=== PATIENT | male | born 1985 | race Hispanic/Latino ===

== ENCOUNTER 2017-10-11 04:51 | Emergency (ER) | payer SELFPAY ==
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
[2017-10-11] MEDS ORDERED: TETANUS & DIPHTHERIA TOX,ADULT 0.5 ML VIAL ONE (05:35)
[2017-10-11 06:07] VITALS: BP 149/93; TEMP 97.8; O2SAT 99
--- NOTE | 2017-10-11 11:29 | RAD REPORT ---
EXAM DESCRIPTION: CT - Head Brain Wo Cont - 10/11/2017 7:18 am CLINICAL HISTORY: Trauma, head injury. COMPARISON: 11/01/2014 TECHNIQUE: All CT scans are performed using dose optimization technique as appropriate and may inclu de automated exposure control or mA/KV adjustment according to patient size. FINDINGS: No intracranial hemorrhage, hydrocephalus or extra-axial fluid collection.No areas of brai n edema or evidence of midline shift. The paranasal sinuses and mastoids are clear. The calvarium is intact. Several scalp hematomas are no maicol. IMPRESSION: No acute intracranial abnormality.
== END 2017-10-11 06:04 | disposition home or self-care (01) ==
LOC: ER 04:51
DX: S00.81XA Abrasion of other part of head, initial encounter (principal); W22.8XXA Striking against or struck by other objects, initial encounter; Y93.9 Activity, unspecified; Y92.149 Unspecified place in prison as the place of occurrence of the external cause; Z23 Encounter for immunization
CPT/HCPCS: 70450; 90714; 99284

== ENCOUNTER 2019-01-30 07:58 | Emergency (ER) | payer SELFPAY ==
[2019-01-30 08:25] LABS: Urine Blood NEGATIVE (NEG); Urine Glucose NEGATIVE (NEG); Urine Protein NEGATIVE (NEG); Urine Specific Gravity <1.005 (1.005-1.030)
[2019-01-30] MEDS ORDERED: ONDANSETRON 4 MG/2 ML VIAL ONE (08:33)
[2019-01-30] MEDS ORDERED: NA CHLORIDE 0.9% 1,000 ML ONE ×3 (08:43→11:33)
[2019-01-30 08:47] LABS: Protime INR 1.04
[2019-01-30 08:56] LABS: Absolute Lymphocytes (CBC) 4.8 K/uL (0.7-4.9); Basophils % 0.7 % (0-1.3); Eosinophils % 0.7 % (0-4.4); Hematocrit 41.5 % (39.6-49.0); MPV 11.9 fL (7.6-11.3); Monocytes % 4.8 % (3.3-12.3); RBC Red Blood Cell Count 6.53 M/uL (4.33-5.43)
[2019-01-30 09:04] LABS: Barbiturates NEGATIVE (NEGATIVE); Benzodiazepines NEGATIVE (NEGATIVE); Cocaine NEGATIVE (NEGATIVE); METHAMPHETAM NEGATIVE (NEGATIVE); Methadone NEGATIVE (NEGATIVE); Opiates NEGATIVE (NEGATIVE); Phencyclidine NEGATIVE (NEGATIVE); THC Cannibis NEGATIVE (NEGATIVE)
[2019-01-30 09:07] LABS: ALT/SGPT 83 U/L (12-78); AST/SGOT 55 U/L (15-37); Albumin 4.1 g/dL (3.4-5.0); Alkaline Phosphatase 65 U/L (45-117); BUN Blood Urea Nitrogen 12 mg/dL (7-18); Bicarbonate 24 mmol/L (21-32); Bilirubin Direct 0.2 mg/dL (0-0.2); Bilirubin Total 0.4 mg/dL (0.2-1.0); Glucose Level 122 mg/dL (74-106); Potassium 3.3 mmol/L (3.5-5.1); Sodium Level 140 mmol/L (136-145)
[2019-01-30 09:16] LABS: Arterial Blood Carboxyhemoglob 0.5 % (0-1.5); Blood Gas Oxyhemoglobin 96.2 % (94-97); Blood O2 Saturation 97.6 % (92-98.5)
[2019-01-30 09:24] LABS: Anisocytosis 1+; Blood Morphology Comment NOTED (NOT SEEN); Hypochromasia 1+; Platelet Estimate ADEQ; Platelets, Giant F
--- NOTE | 2019-01-30 10:15 | RAD REPORT ---
EXAM DESCRIPTION: CT - Head Brain Wo Cont - 01/30/2019 9:49 am CLINICAL HISTORY: Alteration of awareness/confusion COMPARISON: None TECHNIQUE: Computed axial tomography of the head was obtained. IV contrast was not requested. All CT scans are performed using dose optimization technique as appropriate and may include automated exposure control or mA/KV adjustment according to patient size. FINDINGS: An intracranial bleed is not seen . The ventricles are normal in caliber. No extra-axial fluid collection is noted. Joey cisterna magna. Fluid within the sinuses/ mastoids is not seen. IMPRESSION: No acute intracranial abnormality is seen. If patient's symptoms persist MRI of the bra in would be recommended.
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
--- NOTE | 2019-01-30 13:06 | EDPHYS ---
Physician Documentation [facility] Name: Tyler Silverio Jr Age: 33 yrs Sex: Male : 1985 Arrival Date: 01/30/2019 Time: 07:59 Bed 3 Private MD: ED Physician Hudson Franz HPI: 01/30 14:29 This 33 yrs old Male presents to ER via EMS with complaints of Unresponsive. gs 14:29 The patient presents with decreased mental status. Onset: The symptoms/episode gs began/occurred acutely, just prior to arrival. Possible causes: alcohol, has had a recent alcohol binge. Associated signs and symptoms: Pertinent positives: confusion, Pertinent negatives: combativeness. Current symptoms: In the emergency department the patient's symptoms are unchanged from the initial presentation. 15:08 The patient has experienced a previous episode. The patient has not recently seen a gs physician. Historical: - Allergies: 08:02 No Known Drug Allergies; hj - Home Meds: 08:02 None [Active]; hj - PMHx: 08:02 None; hj - PSHx: 08:02 None; hj - Immunization history:: Adult Immunizations unknown. - Social history:: Smoking status: Patient uses tobacco products, Patient uses alcohol. - Ebola Screening: : Patient negative for fever greater than or equal to 101.5 degrees Fahrenheit, and additional compatible Ebola Virus Disease symptoms Patient denies exposure to infectious person Patient denies travel to an Ebola-affected area in the 21 days before illness onset. ROS: 15:08 All other systems are negative. gs Exam: 15:08 Head/Face: Normocephalic, atraumatic. Eyes: Pupils equal round and reactive to light, gs extra-ocular motions intact. Lids and lashes normal. Conjunctiva and sclera are non-icteric and not injected. Cornea within normal limits. Periorbital areas with no swelling, redness, or edema. ENT: Nares patent. No nasal discharge, no septal abnormalities noted. Tympanic membranes are normal and external auditory canals are clear. Oropharynx with no redness, swelling, or masses, exudates, or evidence of obstruction, uvula midline. Mucous membranes moist. Neck: Trachea midline, no thyromegaly or masses palpated, and no cervical lymphadenopathy. Supple, full range of motion without nuchal rigidity, or vertebral point tenderness. No Meningismus. Chest/axilla: Normal chest wall appearance and motion. Nontender with no deformity. No lesions are appreciated. Cardiovascular: Regular rate and rhythm with a normal S1 and S2. No gallops, murmurs, or rubs. Normal PMI, no JVD. No pulse deficits. Respiratory: Lungs have equal breath sounds bilaterally, clear to auscultation and percussion. No rales, rhonchi or wheezes noted. No increased work of breathing, no retractions or nasal flaring. Abdomen/GI: Soft, non-tender, with normal bowel sounds. No distension or tympany. No guarding or rebound. No evidence of tenderness throughout. Back: No spinal tenderness. No costovertebral tenderness. Full range of motion. Skin: Warm, dry with normal turgor. Normal color with no rashes, no lesions, and no evidence of cellulitis. MS/ Extremity: Pulses equal, no cyanosis. Neurovascular intact. Full, normal range of motion. 15:08 Constitutional: The patient appears lethargic. 15:08 Neuro: Orientation: Not oriented to person, place, time, situation, Mentation: responsive to pain, Cranial nerves: Rotary nystagmus in . Motor: moves all fours, Sensation: Vital Signs: 08:03 BP 117 / 79; Pulse 71; Resp 18; Pulse Ox 98% on R/A; Weight 72.57 kg; Height 5 ft. 5 hj in. (165.10 cm); 08:23 BP 119 / 86; Pulse 70; Resp 16; Temp 98.4(A); Pulse Ox 99% on 2 lpm NC; 08:45 BP 108 / 68; Pulse 64; Resp 18; Pulse Ox 98% on 2 lpm NC; 10:45 BP 90 / 51; Pulse 68; Resp 14; Pulse Ox 96% on R/A; bp 12:00 BP 99 / 60; Pulse 67; Resp 18; Pulse Ox 100% on 2 lpm NC; hj 13:09 BP 100 / 62; Pulse 67; Resp 18; Pulse Ox 100% on R/A; 08:03 Body Mass Index 26.63 (72.57 kg, 165.10 cm) MDM: 08:19 Patient medically screened. 15:08 Differential Diagnosis: alcohol intoxication, intracranial bleed, overdose, seizure. Data reviewed: vital signs, nurses notes. Counseling: I had a detailed discussion with the patient and/or guardian regarding: the historical points, exam findings, and any diagnostic results supporting the discharge/admit diagnosis. Response to treatment: the patient's symptoms have markedly improved after treatment, the patient's symptoms have resolved after treatment, the patient's condition has returned to base line, normal neuro exam gcs 15 at discharge. 01/30 08:18 Order name: Urine Dipstick--Ancillary (enter results); Complete Time: 09:03 ms 01/30 08:19 Order name: ABG; Complete Time: 10:16 01/30 08:19 Order name: Acetaminophen 01/30 08:19 Order name: Basic Metabolic Panel 01/30 08:19 Order name: CBC with Diff 01/30 08:19 Order name: ETOH Level 01/30 08:19 Order name: Hepatic Function 01/30 08:19 Order name: PT-INR 01/30 08:19 Order name: Salicylate; Complete Time: 09:03 01/30 08:19 Order name: Urine Drug Screen; Complete Time: 09:18 01/30 08:20 Order name: Acetaminophen Level; Complete Time: 09:18 EDMS 01/30 08:20 Order name: Basic Metabolic Panel; Complete Time: 09:18 EDMS 01/30 08:20 Order name: CBC with Automated Diff; Complete Time: 10:16 EDMS 01/30 08:20 Order name: Alcohol Serum/Plasma; Complete Time: 09:18 EDMS 01/30 08:19 Order name: EKG; Complete Time: 08:20 01/30 08:19 Order name: EKG - Nurse/Tech; Complete Time: 08:26 01/30 08:19 Order name: IV Saline Lock; Complete Time: 08:26 01/30 08:19 Order name: Labs collected and sent; Complete Time: 08:26 01/30 08:19 Order name: Urine Dipstick-Ancillary (obtain specimen); Complete Time: 08:26 01/30 08:20 Order name: Liver (Hepatic) Function; Complete Time: 09:18 EDMS 01/30 08:20 Order name: Protime (+INR); Complete Time: 09:03 EDMS 01/30 09:22 Order name: CT Head Brain wo Cont; Complete Time: 10:16 01/30 09:24 Order name: Manual Differential; Complete Time: 10:16 EDMS Administered Medications: 08:25 Drug: NS 0.9% 1000 ml Route: IV; Rate: 1 bolus; Site: right forearm; hj 08:25 Drug: Zofran 4 mg Route: IVP; Site: right forearm; hj 08:39 Follow up: Response: Nausea is decreased bp 09:27 Drug: NS 0.9% 1000 ml Route: IV; Rate: 125 ml/hr; Site: right forearm; hj 09:45 Follow up: per provider to be ran as bolus hj 09:45 Follow up: to be ran as bolus hj 11:05 Follow up: IV Status: Completed infusion; IV Intake: 1000ml hj 11:16 Drug: NS 0.9% 1000 ml Route: IV; Rate: 1 bolus; Site: right forearm; hj 12:45 Follow up: IV Status: Completed infusion; IV Intake: 1000ml hj Disposition: 01/30/19 13:04 Discharged to Home. Impression: Toxic effect of ethanol. - Condition is Stable. - Discharge Instructions: Alcohol Intoxication. - Medication Reconciliation Form, Thank You Letter, Antibiotic Education, Prescription Opioid Use, SBAR form form. - Follow up: Private Physician; When: 1 - 2 days; Reason: Re-evaluation by your physician. Signatures: Dispatcher [employer] EDMS Herman Acevedo RN RN Hudson Franz MD MD gs Peltier, Brian RN bp Corrections: (The following items were deleted from the chart) 13:10 13:04 01/30/2019 13:04 Discharged to Home. Impression: Toxic effect of ethanol. hj Condition is Stable. Forms are SBAR form, Medication Reconciliation Form, Thank You Letter, Antibiotic Education, Prescription Opioid Use. Follow up: Private Physician; When: 1 - 2 days; Reason: Re-evaluation by your physician.
[2019-01-30 13:21] VITALS: TEMP 98.4
[2019-01-30 13:25] VITALS: O2SAT 100
[2019-01-30 13:26] VITALS: BP 100/62
--- NOTE | 2019-01-31 09:12 | EKG ---
Test Date: 2019-01-30 Test Time: 08:09:42 Hand Hide Stretcher: LORRI MEASUREMENT RESULTS: Intervals: Rate: 77 OK: 180 QRSD: 94 QT: 406 QTc: 459 [place]: P: 57 OK: 180 QRS: 8 T: 20 INTERPRETIVE STATEMENTS: Sinus rhythm with sinus arrhythmia with occasional premature ventricular complexes Otherwise normal ECG Compared to ECG 03/12/2011 09:44:03 Ventricular premature complex(es) now present Electronically Signed On 01-31-19 09:10:49 CDT by Pancho Vila
== END 2019-01-30 13:10 | disposition home or self-care (01) ==
LOC: ER 07:58
DX: T51.0X1A Toxic effect of ethanol, accidental (unintentional), initial encounter (principal); Y92.9 Unspecified place or not applicable
CPT/HCPCS: 36415; 70450; 80048; 80076; 80307; 80320; 80329; 81003; 82805; 85025; 85610; 93005; 96361; 96374; 99284; J2405; J7030

== ENCOUNTER 2020-10-24 12:05 | Emergency (ER) | payer OTHER, SELFPAY ==
--- OUTSIDE RECORDS SUMMARY | 2020-10-24 12:07 | XMS REPORT | Continuity of Care Document ---
:1985 Author Organization [facility] t Address [address] [place] [address] Care Team Providers Name Role Phone Geremias Orr APN Attending Clinician Problems This patient has no known problems. Allergies, Adverse Reactions, Alerts This patient has no known allergies or adverse reactions. Medications This patient has no known medications. Procedures This patient has no known procedures. Encounters Start End Encounter Admission Attending Care Care Encounter Source Date/Time Date/Time Type Type Clinicians Facility Department ID 2020-01-06 2020-01-06 Emergency JASS Orr [id number] 12:24:39 14:00:00 Geremias Richardson [id number] [place] [id number] [place] [id number] Results This patient has no known results.
--- NOTE | 2020-10-24 13:33 | RAD REPORT ---
EXAM DESCRIPTION: RAD - Chest Single View - 10/24/2020 1:06 pm CLINICAL HISTORY: COUGH COMPARISON: None TECHNIQUE: AP portable chest image was obtained 10/24/2020 1:06 pm . FINDINGS: Lungs are clear. Heart and vasculature are normal. No measurable pleural effusion and no p neumothorax. No acute bony abnormality seen. No acute aortic findings suspected. IMPRESSION: No acute cardiopulmonary process.
[2020-10-24 13:40] LABS: SARS-COV-2 RT PCR NEGATIVE (NEGATIVE)
--- NOTE | 2020-10-24 14:26 | ER ---
Nurse's Notes [facility] Name: Tyler Silverio Jr Age: 34 yrs Sex: Male : 1985 Arrival Date: 10/24/2020 Time: 12:06 Bed 13 Private MD: Diagnosis: Acute upper respiratory infection, unspecified Presentation: 10/24 12:11 Chief complaint: Patient states: cough with mucous and having some pain in his chest iw when he cough, no fever , had COVID last year. Coronavirus screen: Client presents with at least one sign or symptom that may indicate coronavirus-19. Standard/surgical mask placed on the client. Provider contacted for isolation considerations. Ebola Screen: Patient negative for fever greater than or equal to 101.5 degrees Fahrenheit, and additional compatible Ebola Virus Disease symptoms Patient denies exposure to infectious person. Patient denies travel to an Ebola-affected area in the 21 days before illness onset. No symptoms or risks identified at this time. Initial Sepsis Screen: Does the patient meet any 2 criteria? No. Patient's initial sepsis screen is negative. Does the patient have a suspected source of infection? No. Patient's initial sepsis screen is negative. Risk Assessment: Do you want to hurt yourself or someone else? Patient reports no desire to harm self or others. Onset of symptoms was October 21, 2020. 12:11 Method Of Arrival: Ambulatory iw 12:11 Acuity: MARTHA 3 iw Triage Assessment: 12:48 General: Appears in no apparent distress. Respiratory: Onset: The symptoms/episode zb began/occurred yesterday, the patient has mild shortness of breath. Historical: - Allergies: 12:14 No Known Allergies; iw - Home Meds: 12:14 Seroquel Oral [Active]; sertraline oral oral [Active]; iw - PMHx: 12:14 Bipolar disorder; iw - PSHx: 12:14 None; iw - Immunization history:: Adult Immunizations not up to date. - Social history:: Smoking status: Patient denies any tobacco usage or history of. Screenin:46 Abuse screen: Denies threats or abuse. Denies injuries from another. Nutritional zb screening: No deficits noted. Tuberculosis screening: No symptoms or risk factors identified. Fall Risk None identified. Assessment: 12:43 General: Appears in no apparent distress. comfortable, Behavior is calm, cooperative, zb appropriate for age, Reports feeling ill for 1-2 days. Pain: Complains of pain in left methodist and neck Pain does not radiate. Pain currently is 1 out of 10 on a pain scale. Neuro: No deficits noted. Level of Consciousness is awake, alert, obeys commands, Oriented to person, place, time, situation. Cardiovascular: Denies chest pain, diaphoresis, fatigue, lightheadedness, nausea, shortness of breath, syncope, Heart tones S1 S2 present Patient's skin is warm and dry. Rhythm is sinus tachycardia. Respiratory: Reports cough that is non-productive, hacking, persistent Airway is patent Respiratory effort is even, unlabored, Respiratory pattern is regular, Breath sounds are clear bilaterally. GI: No signs and/or symptoms were reported involving the gastrointestinal system. Derm: Skin is intact, is healthy with good turgor, Skin is normal, Skin temperature is warm. Musculoskeletal: Circulation, motion, and sensation intact. 13:40 Reassessment: Patient appears in no apparent distress at this time. Patient and/or zb family updated on plan of care and expected duration. Pain level reassessed. Patient is alert, oriented x 3, equal unlabored respirations, skin warm/dry/pink. 14:23 Reassessment: Patient appears in no apparent distress at this time. Patient and/or zb family updated on plan of care and expected duration. Pain level reassessed. Patient is alert, oriented x 3, equal unlabored respirations, skin warm/dry/pink. Vital Signs: 12:11 BP 146 / 92; Pulse 105; Resp 16; Temp 97.9; Pulse Ox 99% on R/A; Weight 97.52 kg; iw Height 5 ft. 10 in. (177.80 cm); 12:43 BP 156 / 103; Pulse 101; Resp 16; Pulse Ox 100% on R/A; zb 13:32 BP 156 / 105; Pulse 100; Resp 16; Pulse Ox 100% on R/A; zb 14:30 BP 156 / 98; Pulse 88; Resp 16; Pulse Ox 98% on R/A; zb 12:11 Body Mass Index 30.85 (97.52 kg, 177.80 cm) iw ED Course: 12:06 Patient arrived in ED. am2 12:13 Triage completed. iw 12:14 Patient placed. iw 12:15 Arm band placed on. iw 12:17 Lashae Nelson, RN is Primary Nurse. zb 12:21 Joy Harris FNP-C [facility]. kb 12:21 Messi Santiago MD is Attending Physician. kb 12:46 Patient has correct armband on for positive identification. Bed in low position. Call zb light in reach. Side rails up X 1. Pulse ox on. NIBP on. Door closed. Noise minimized. PO fluids given. 12:53 COVID swab sent to lab. Flu and/or RSV swab sent to lab. Strep swab sent to lab. zb 13:00 Verbal reassurance given. zb 13:06 Chest Single View XRAY In Process Unspecified. EDMS 14:31 No provider procedures requiring assistance completed. Patient did not have IV access zb during this emergency room visit. Administered Medications: No medications were administered Outcome: 14:25 Discharge ordered by MD. kb 14:31 Discharged to home ambulatory. zb 14:31 Condition: stable 14:31 Discharge instructions given to patient, Instructed on discharge instructions, follow up and referral plans. Demonstrated understanding of instructions, follow-up care. 14:32 Patient left the ED. zb Signatures: Dispatcher [employer] EDTX Joy Harris FNP-C BAKERY DELIVERER-Xiao Morley, RN MARCELO Adrienne Hernandez [facility] Lashae Nelson, MARCELO rojo
--- NOTE | 2020-10-24 14:26 | EDPHYS ---
Physician Documentation [facility] Name: Tyler Silverio Jr Age: 34 yrs Sex: Male : 1985 Arrival Date: 10/24/2020 Time: 12:06 Bed 13 Private MD: ED Physician Messi Santiago HPI: 10/24 13:25 This 34 yrs old Male presents to ER via Ambulatory with complaints of Cough, kb Breathing Difficulty. 13:25 The patient or guardian reports cough, difficulty breathing, sore throat. Severity of kb symptoms: At their worst the symptoms were moderate, in the emergency department the symptoms are unchanged. The patient has not experienced similar symptoms in the past. The patient has not recently seen a physician. 13:25 Onset: The symptoms/episode began/occurred 3 day(s) ago. Modifying factors: The kb symptoms are alleviated by nothing, the symptoms are aggravated by nothing. Associated signs and symptoms: Pertinent positives: sore throat, Pertinent negatives: chest pain, diarrhea, ear ache, fever, nausea, rhinorrhea, vomiting. Pt reports cough with green sputum and sore throat for 3 days. States he was recently around a family member who had bronchitis. Historical: - Allergies: 12:14 No Known Allergies; iw - Home Meds: 12:14 Seroquel Oral [Active]; sertraline oral oral [Active]; iw - PMHx: 12:14 Bipolar disorder; iw - PSHx: 12:14 None; iw - Immunization history:: Adult Immunizations not up to date. - Social history:: Smoking status: Patient denies any tobacco usage or history of. ROS: 13:25 Constitutional: Negative for fever, chills, and weight loss, Cardiovascular: Negative kb for chest pain, palpitations, and edema, Abdomen/GI: Negative for abdominal pain, nausea, vomiting, diarrhea, and constipation, MS/Extremity: Negative for injury and deformity, Skin: Negative for injury, rash, and discoloration, Neuro: Negative for headache, weakness, numbness, tingling, and seizure. 13:25 ENT: Positive for sore throat. 13:25 Respiratory: Positive for cough. Exam: 13:25 Constitutional: This is a well developed, well nourished patient who is awake, alert, kb and in no acute distress. Head/Face: Normocephalic, atraumatic. Cardiovascular: Regular rate and rhythm with a normal S1 and S2. No gallops, murmurs, or rubs. No pulse deficits. Respiratory: Respirations even and unlabored. No increased work of breathing, no retractions or nasal flaring. Abdomen/GI: Soft, non-tender. No distention Skin: Warm, dry with normal turgor. Normal color. MS/ Extremity: Pulses equal, no cyanosis. Neurovascular intact. Full, normal range of motion. Neuro: Awake and alert, GCS 15, oriented to person, place, time, and situation. Moves all extremities. Normal gait. Vital Signs: 12:11 BP 146 / 92; Pulse 105; Resp 16; Temp 97.9; Pulse Ox 99% on R/A; Weight 97.52 kg; iw Height 5 ft. 10 in. (177.80 cm); 12:43 BP 156 / 103; Pulse 101; Resp 16; Pulse Ox 100% on R/A; zb 13:32 BP 156 / 105; Pulse 100; Resp 16; Pulse Ox 100% on R/A; zb 14:30 BP 156 / 98; Pulse 88; Resp 16; Pulse Ox 98% on R/A; zb 12:11 Body Mass Index 30.85 (97.52 kg, 177.80 cm) iw MDM: 12:21 Patient medically screened. kb 13:27 Data reviewed: vital signs, nurses notes. Data interpreted: Pulse oximetry: on room air kb is 100 %. Interpretation: normal. 14:25 Counseling: I had a detailed discussion with the patient and/or guardian regarding: the kb historical points, exam findings, and any diagnostic results supporting the discharge/admit diagnosis, lab results, radiology results, the need for outpatient follow up, a family practitioner, to return to the emergency department if symptoms worsen or persist or if there are any questions or concerns that arise at home. 10/24 12:22 Order name: Chest Single View XRAY; Complete Time: 13:45 kb 10/24 12:33 Order name: Strep; Complete Time: 13:21 kb 10/24 13:23 Order name: Throat Culture EDMS 10/24 13:40 Order name: COVID-19/FLU A+B; Complete Time: 13:45 EDMS Administered Medications: No medications were administered Disposition: 16:06 Co-signature as Attending Physician, Messi Santiago MD I agree with the assessment and kdr plan of care. Disposition: 10/24/20 14:25 Discharged to Home. Impression: Acute upper respiratory infection, unspecified. - Condition is Stable. - Discharge Instructions: Upper Respiratory Infection, Adult, [id number], Viral Respiratory Infection, [id number]. - Medication Reconciliation Form, Thank You Letter, Antibiotic Education, Prescription Opioid Use form. - Follow up: Emergency Department; When: As needed; Reason: Worsening of condition. Follow up: Private Physician; When: 2 - 3 days; Reason: Recheck today's complaints, Continuance of care, Re-evaluation by your physician. Signatures: Dispatcher [employer] [facility] Joy Harris, LAWN SERVICE SUPERVISOR-C LAWN SERVICE SUPERVISOR-Ckb Messi Santiago MD MD [facility] Xiao Neves, Lashae Qiu RN, RN RN zb Corrections: (The following items were deleted from the chart) 12:56 12:23 CORONAVIRUS+MR.LAB.BRZ ordered. [facility] 14:32 14:25 10/24/2020 14:25 Discharged to Home. Impression: Acute upper respiratory zb infection, unspecified. Condition is Stable. Forms are Medication Reconciliation Form, Thank You Letter, Antibiotic Education, Prescription Opioid Use. Follow up: Emergency Department; When: As needed; Reason: Worsening of condition. Follow up: Private Physician; When: 2 - 3 days; Reason: Recheck today's complaints, Continuance of care, Re-evaluation by your physician. kb
[2020-10-24 14:40] VITALS: BP 156/98; O2SAT 98
[2020-10-24 14:49] VITALS: TEMP 98.3
== END 2020-10-24 14:32 | disposition home or self-care (01) ==
LOC: ER 12:05
DX: J06.9 Acute upper respiratory infection, unspecified (principal); Z20.822 Contact with and (suspected) exposure to COVID-19; F31.9 Bipolar disorder, unspecified
CPT/HCPCS: 0240U; 71045; 87070; 87081; 99284

== ENCOUNTER 2023-11-23 18:15 | Observation (INO) | payer OTHER ==
--- OUTSIDE RECORDS SUMMARY | 2023-11-23 18:20 | XMS REPORT | Continuity of Care Document ---
Author Name Unknown Address [address] [place] [address] [facility] thconnect Address [address] [place] [address] Care Team Providers Care Italian Lecturer Name Role Phone Geremias Orr APN Attending Clinician [phone] Problems Condition Name Condition Details Condition Category Status Onset Date Resolution Date Last Treatment Date Treating Clinician Comments Source No known active problems No known active problems Disease [facility] Allergies, Adverse Reactions, Alerts Allergy Name Allergy Type Status Severity Reaction(s) Onset Date Inactive Date Treating Clinician Comments Source NO KNOWN ALLERGIE S Drug Class Active [facility] Social History Social Habit Start Date Stop Date Quantity Comments Source Sex Assigned At [facility] Exposure to SARS-CoV-2 (event) Not sure [facility] Smoking Status Start Date Stop Date Source Unknown if ever smoked [facility] Medications Ordered Medication Name Filled Medication Name Start Date Stop Date Current Medication? Ordering Clinician Indication Dosage Frequency Signature (SIG) Comments Components Source No known medications No Un diya [facility] Vital Signs Vital Name Observation Time Observation Value Comments S ource Body temperature 2020-01-06 17:22:00 38 Elizabeth [facility] Respiratory rate 2020-01-06 17:22:00 20 /min [facility] Body height 2020-01-06 17:22:00 175.3 cm [facility] Body weight 2020-01-06 17:22:00 97.07 kg [facility] BMI 2020-01-06 17:22:00 31.60 kg/m2 [facility] Oxygen saturation in Arterial blood by Pulse oximetry 2020-01-06 17:22:00 97 /min [facility] Systolic blood pressure 2020-01-06 17:22:00 144 mm[Hg] [facility] Diastolic blood pressure 2020-01-06 17:22:00 109 mm[Hg] [facility] Heart rate 2020-01-06 17:22:00 101 /min [facility] Body temperature 2020-01-06 17:22:00 38 Elizabeth [facility] Respiratory rate 2020-01-06 17:22:00 20 /min [facility] Body height 2020-01-06 17:22:00 175.3 cm [facility] Body weight 2020-01-06 17:22:00 97.07 kg [facility] BMI 2020-01-06 17:22:00 31.60 kg/m2 [facility] Oxygen saturation in Arterial blood by Pulse oximetry 2020-01-06 17:22:00 97 /min [facility] Systolic blood pressure 2020-01-06 17:22:00 144 mm[Hg] [facility] Diastolic blood pressure 2020-01-06 17:22:00 109 mm[Hg] [facility] Heart rate 2020-01-06 17:22:00 101 /min [facility] Procedures Procedure Date / Time Performed Performing Clinicia n Source NOTICE OF PRIVACY PRACTICES 2020-01-06 17:11:57 Doctor Unassigned, [place] [facility] Encounters Start Date/Time End Date/Time Encounter Type Admission Type Attending Clinicians Care Facility Care Department Encounter ID Source 2020-02-17 00:00:00 2020-02-17 00:00:00 Outpatient [facility] [id number] [facility] 2020-01-06 12:24:39 2020-01-06 14:00:00 Emergency Dominga Geremias Laure [facility] [id number] [facility] 2020-01-06 12:24:39 2020-01-06 14:00:00 Emergency Geremias Orr [facility] [id number] 2020-01-06 12:13:00 2020-01-06 12:13:[address] [facility] ERT [id number] [facility]
[2023-11-23] MEDS ORDERED: NA CHLORIDE 0.9% 1,000 ML ONE ×3 (18:49→23:43)
[2023-11-23 19:02] LABS: PT Prothrombin Time 12.4 SECONDS (9.5-12.5); Protime INR 1.13
[2023-11-23 19:03] LABS: Absolute Basophils 0.1 K/uL (0-0.5); Absolute Lymphocytes (CBC) 1.6 K/uL (0.7-4.9); Absolute Monocytes 0.8 K/uL (0.1-1.3); Absolute Neutrophil 8.2 K/uL (1.8-8.0); Basophils % 0.6 % (0-1.3); Eosinophils % 0.2 % (0-4.4); Hematocrit 42.1 % (39.6-49.0); Hemoglobin 13.1 g/dL (13.6-17.9); MCH 19.9 pg (27.0-35.0); MCHC 31.2 g/dL (32.0-36.0); MCV 63.7 fL (80-100); MPV 9.5 fL (7.6-11.3); Monocytes % 7.2 % (3.3-12.3); Nucleated Red Blood Cells % 0.2 % (0-0); Platelets 113 thou/uL (152-406); RBC Red Blood Cell Count 6.62 M/uL (4.33-5.43); Red Cell Distribution Width 16.3 % (12.1-15.2)
[2023-11-23 19:32] LABS: Albumin 3.7 g/dL (3.4-5.0); Albumin/Globulin Ratio 0.9 (1.1-1.8); Anion Gap 9.5 mEq/L (5.0-15.0); Bilirubin Direct 0.4 mg/dL (0-0.2); Bilirubin Indirect, Calculated 0.7 mg/dL (0.2-0.8); Bilirubin Total 1.1 mg/dL (0.2-1.0); Globulin 3.9 g/dL (2.3-3.5); Magnesium 2.1 mg/dL (1.6-2.4); Potassium 3.5 mEq/L (3.5-5.1); Protein, Total 7.6 g/dL (6.4-8.2)
[2023-11-23 19:34] LABS: Troponin High Sensitivity 64.6 pg/mL (<58.9)
[2023-11-23 19:39] LABS: Band Neutrophils 1 % (0-1); Differential Total Cells Count 100; Eosinophils 1 % (0-3); Lymphocytes 15 % (15-42); Monocytes 5 % (0-10); Segmented Neutrophils 78 % (40-80)
[2023-11-23 19:40] LABS: Basophilic Stippling 1+; Blood Morphology Comment NOTED (NOT SEEN); Microcytosis 1+; Platelet Estimate DECR
--- NOTE | 2023-11-23 20:00 | RAD REPORT ---
EXAM DESCRIPTION: RADChest Single View11/23/2023 7:41 pm CLINICAL HISTORY: CHEST PAIN COMPARISON: Chest Single View dated 10/24/2020 TECHNIQUE: Portable AP view of the chest. FINDINGS: The lungs are clear. No pneumothorax or effusion. The cardiomediastinal contours are unre markable. IMPRESSION: No acute cardiopulmonary process.
[2023-11-23 20:20] LABS: Barbiturates NEGATIVE (NEGATIVE); Benzodiazepines NEGATIVE (NEGATIVE); Cocaine NEGATIVE (NEGATIVE); METHAMPHETAM NEGATIVE (NEGATIVE); Methadone NEGATIVE (NEGATIVE); Opiates NEGATIVE (NEGATIVE); Phencyclidine NEGATIVE (NEGATIVE); THC Cannibis NEGATIVE (NEGATIVE)
--- NOTE | 2023-11-23 21:29 | RAD REPORT ---
EXAM DESCRIPTION: - Upper Extremity Wo Contr - 11/23/2023 8:28 pm CLINICAL HISTORY: electrocution COMPARISON: Chest Abdomen W Con dated 11/23/2023 TECHNIQUE: Thin cut axial CT imaging of the left upper extremity was performed without IV contrast. Multiplanar reformats were generated and reviewed. All CT scans are performed using dose optimization technique as appropriate and may include automated exposure control or mA/KV adjustment according to patient size. FINDINGS: No acute fracture or dislocation. No suspicious focal osseous lesions. Joint alignment is maintained. No significant degenerative changes or erosions. Mild wrist joint effusion. Moderate effusion of the distal radioulnar joint. Surrounding soft tissues are unremarkable. No pathologic calcifications. No abnormal fluid collection s. IMPRESSION: No acute osseous abnormality. Mild wrist joint effusion. Moderate distal radioulnar joint effusion.
--- NOTE | 2023-11-23 21:39 | RAD REPORT ---
EXAM DESCRIPTION: CT - Chest Abdomen W Con - 11/23/2023 8:30 pm CLINICAL HISTORY: CHEST PAIN COMPARISON: No comparisons TECHNIQUE: Thin axial CT images of the chest, abdomen, and pelvis, performed following intravenous a dministration of 95mL Isovue-300. Multiplanar reformats were generated and reviewed. All CT scans are performed using dose optimization technique as appropriate and may include automated exposure control or mA/KV adjustment according to patient size. FINDINGS: The lungs are clear.No pleural or pericardial effusion.No intrathoracic adenopathy. The liver, spleen, pancreas, adrenal glands and kidneys are within normal limits. Gallbladder is con tracted limiting evaluation. No bowel obstruction, free air, free fluid or abscess. Normal appendix. No pathologic lymphadenopath y in the abdomen or included aspects of the pelvis. No worrisome osseous finding. Transitional anatomy with enlarged transverse processes of L5. IMPRESSION: No acute findings in the chest and abdomen.
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
[2023-11-23] MEDS: NA CHLORIDE 0.9% 1,000 ML IV SCH (22:21)
[2023-11-23] MEDS: NIFEDIPINE XL 60 MG TABLET PO SCH (22:21)
--- NOTE | 2023-11-23 22:21 | P.HP ---
Certification for Inpatient Patient admitted to: Observation With expected LOS: <2 Midnights Practitioner: I am a practitioner with admitting privileges, knowledge of patient current condition, hospital course, and medical plan of care. Services: Services provided to patient in accordance with Admission requirements found in Title 42 Section 412.3 of the Code of Federal Regulations Patient History Date of Service: 11/23/23 Reason for admission: Rhabdomyolysis History of Present Illness: Patient is a 37-year-old male with a past medical history of bipolar and schizophrenia. He is noncompliant with his medications. Presented to the ER complaining of diffuse pain including chest pain. Patient states that he was running today from [place] to [place] and to [place]. 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 He is now here for diffuse pain. Basic labs are significant for CPK of more than 1000 and troponin of 6.4. His EKG was normal. They did a CT abdomen and pelvis in the ER and it was all unremarkable. Allergies No Known Drug Allergies Allergy (Unverified 11/01/14 19:33) Unknown No Known Allergies Allergy (Uncoded 10/11/17 06:07) Unknown Physical Examination - Physical Exam General: Alert, Obese HEENT: Atraumatic, Normocephalic Respiratory: Clear to auscultation bilaterally, Normal air movement Cardiovascular: Normal pulses, Regular rate/rhythm, Normal S1 S2 Gastrointestinal: Soft and benign, Non-distended Integumentary: Other (Multiple tattoos) Neurological: Normal speech, Cranial nerves 3-12 intact - Studies Laboratory Data (last 24 hrs) 11/23/23 11/23/23 11/23/23 18:45 18:45 18:45 WBC 10.70 Hgb 13.1 L Hct 42.1 Plt Count 113 L PT 12.4 INR 1.13 Sodium 139 Potassium 3.5 BUN 14 Creatinine 0.90 Glucose 126 H Magnesium 2.1 Total Bilirubin 1.1 H AST 105 H ALT 183 H Alkaline Phosphatase 84 Assessment and Plan - Problems (Diagnosis) (1) Rhabdomyolysis Current Visit: Yes Status: Acute (2) Elevated troponin Current Visit: Yes Status: Acute - Plan Assessment Patient is a 37-year-old male generally healthy except for psychiatric disorder of schizophrenia and bipolar disorder. He was running today and devel oped diffuse pain including chest pain. Presented to the ER with a CPK of 1098 and a troponin of 64. Patient is complaining of chest pain. EKG shows normal sinus rhythm. Rhabdomyolysis Will start patient on NS INFUSION at 125 cc/HR OK to stop trending CPK if < 1000 Continue pain Elevated troponin Most likely from rhabdomyelitis However, he may have metabolic syndrome Will check for HbA1c, lipid panel and ECHO Trend troponin Admit to telemetry Elevated blood pressure Will start nifedipine PRN IV hydralazine on board DVT ppx-Lovenox Dispo-home when medically cleared Code status-full code - Advance Directives Does patient have a Living Will: No Does patient have a Durable POA for Healthcare: No
[2023-11-23] MEDS: ENOXAPARIN 40 MG/0.4 ML SQ SCH (22:25)
[2023-11-23 23:26] LABS: Troponin High Sensitivity 55.5 pg/mL (<58.9)
[2023-11-23] MEDS ORDERED: ENOXAPARIN 40 MG/0.4 ML SQ ONE (23:44)
[2023-11-24 00:39] VITALS: BMI 31.7
[2023-11-24] MEDS: HYDRALAZINE HCL 20 MG/ML VIAL IV PRN (00:50)
[2023-11-24] MEDS ORDERED: HYDRALAZINE HCL 20 MG/ML VIAL ONE (00:54)
[2023-11-24 04:26] LABS: Absolute Basophils 0.2 K/uL (0-0.5); Absolute Eosinophils 0.1 K/uL (0-0.5); Absolute Lymphocytes (CBC) 2.7 K/uL (0.7-4.9); Absolute Monocytes 0.8 K/uL (0.1-1.3); Absolute Neutrophil 5.8 K/uL (1.8-8.0); Basophils % 1.8 % (0-1.3); Eosinophils % 1.1 % (0-4.4); Hematocrit 39.9 % (39.6-49.0); Hemoglobin 12.6 g/dL (13.6-17.9); MCH 20.3 pg (27.0-35.0); MCHC 31.6 g/dL (32.0-36.0); MPV 10.4 fL (7.6-11.3); Monocytes % 8.3 % (3.3-12.3); Neutrophils % 60.8 % (41.7-73.7); Nucleated Red Blood Cells % 0.2 % (0-0); Platelets 132 thou/uL (152-406); RBC Red Blood Cell Count 6.23 M/uL (4.33-5.43); Red Cell Distribution Width 16.8 % (12.1-15.2)
[2023-11-24 04:43] LABS: Anion Gap 8.1 mEq/L (5.0-15.0); Potassium 3.1 mEq/L (3.5-5.1)
[2023-11-24 06:09] VITALS: O2SAT 99
--- NOTE | 2023-11-24 07:29 | P.PN ---
Date of Service: 11/24/23 Subjective: pain / muscle cramps occurred after running ~5 miles prior to admission. Feeling better today, almost back to normal self Denies any new / worsening problems ROS: 10 point ROS as noted above, otherwise negative Physical Exam: GEN: Alert, oriented, NAD HEENT: Normal conjunctiva, sclera anicteric CV: Regular rate and rhythm, no edema Pulm: Nonlabored respirations on room air, clear bilaterally ABD: Soft, nontender, nondistended Neuro: Normal speech, normal affect vitals reviewed Problem List: Rhabdomyolysis NSTEMI Elevated LFTs Hypertension Bipolar disorder/Schizophrenia Rhabdomyolysis CT chest/abd (11/22): no acute findings. Transitional anatomy with enlarged transverse processes of L5 CT upper extremity (11/22): Mild wrist join effusion. Moderate distal radioulnar joint effusion given IV fluids bonus x2 in ED Continue IV fluids @125ml/hr CK improving 1078 -> 775 -> 657 a1c 6.3 NSTEMI troponins elevated but trended flat suspect secondary to rhabdo Echo (11/23): 60-65% EF with normal wall motion and normal diastolic function. monitor on telemetry Elevated LFTs AST 105 / ALT 185 / t. bili 1.1 Daily labs. continue to monitor improving Hypertension continue nifedipine, started this admission PRN IV hydralazine Bipolar disorder/Schizophrenia ?takes seroquel / wellbutrin at home. Per H&P patient with some medication noncompliance VTE: Lovenox Code: Full Dispo: Home, anticipate DC later this afternoon if continued improvement vs tomorrow am
[2023-11-24 07:56] LABS: Albumin 3.4 g/dL (3.4-5.0); Bilirubin Direct 0.3 mg/dL (0-0.2); Bilirubin Indirect, Calculated 0.8 mg/dL (0.2-0.8); Bilirubin Total 1.1 mg/dL (0.2-1.0); Globulin 3.5 g/dL (2.3-3.5); Magnesium 2.1 mg/dL (1.6-2.4); Protein, Total 6.9 g/dL (6.4-8.2)
[2023-11-24] MEDS: POTASSIUM CL SA 10 MEQ TAB PO ONE (09:56)
--- NOTE | 2023-11-24 11:46 | ECHO ---
HEIGHT: 5 ft 9 in WEIGHT: 215 lb 0 oz DATE OF STUDY: 11/24/[address]: Prince Dimitri Capellan MD 2-DIMENSIONAL: YES M.MODE: YES DOPPLER: YES COLOR FLOW: YES TDS: PORTABLE: YES DEFINITY: BUBBLE STUDY: DIAGNOSIS: ELEVATED TROPONIN CARDIAC HISTORY: CATHERIZATION: NO SURGERY: NO PROSTHETIC VALVE: NO PACEMAKER: NO MEASUREMENTS (cm) DIASTOLIC (NORMALS) SYSTOLIC (NORMALS) IVSd 1.1 (0.6-1.2) LA Diam 3.3 (1.9-4.0) LVEF 60-65% LVIDd 4.8 (3.5-5.7) LVIDs 3.2 (2.0-3.5) %FS 33% LVPWd 1.2 (0.6-1.2) Ao Diam 3.1 (2.0-3.7) 2 DIMENSIONAL ASSESSMENT: RIGHT ATRIUM: NORMAL LEFT ATRIUM: NORMAL RIGHT VENTRICLE: NORMAL LEFT VENTRICLE: NORMAL TRICUSPID VALVE: TRACE TRICUSPID REGURGITATION MITRAL VALVE: NORMAL PULMONIC VALVE: NORMAL AORTIC VALVE: NORMAL PERICARDIAL EFFUSION: NONE AORTIC ROOT: NORMAL LEFT VENTRICULAR WALL MOTION: NORMAL DOPPLER/COLOR FLOW: NORMAL COMMENTS: 1. NORMAL LEFT VENTRICULAR SYSTOLIC FUNCTION, EJECTION FRACTION 60-65%, NORMAL WALL MOTION 2. NORMAL DIASTOLIC FUNCTION TECHNOLOGIST: DAVID BERNSTEIN
[2023-11-24 12:15] VITALS: BP 157/89; TEMP 97.7
--- NOTE | 2023-11-24 13:18 | EKG ---
Test Date: 2023-11-23 Test Time: 19:06:00 [employer] Processing [employer] Manager: SARAI MEASUREMENT RESULTS: Intervals: Rate: 99 RI: 130 QRSD: 82 QT: 344 QTc: 441 [employer]: P: 68 RI: 130 QRS: 22 T: 5 INTERPRETIVE STATEMENTS: Normal sinus rhythm Normal ECG Compared to ECG 01/30/2019 08:09:42 Sinus arrhythmia no longer present Ventricular premature complex(es) no longer present Electronically Signed On 11-24-23 13:16:56 CDT by Xavier Deleon
== END 2023-11-24 12:25 | disposition home or self-care (01) ==
LOC: ER 18:15 → ERHOLD 22:13 → 2ND 11-24 04:43
PROVIDERS: ADMIT Internal Medicine; ATTEND Hospitalist
DX: M62.82 Rhabdomyolysis (principal); I21.4 Non-ST elevation (NSTEMI) myocardial infarction; R79.89 Other specified abnormal findings of blood chemistry; I10 Essential (primary) hypertension
CPT/HCPCS: 96361; 93005; 93306; 85025 ×2; 80048 ×2; 36415; 83735 ×2; 82550 ×3; 85610; 80061; 80076 ×2; 83036; 84484 ×2; 83880; 80307; 74160; 71260; 73200; 71045; 96360; 99285; Q9967; J0360; J1650; J7030 ×4; G0378 ×4

== ENCOUNTER 2023-12-12 04:51 | Emergency (ER) | payer OTHER ==
--- OUTSIDE RECORDS SUMMARY | 2023-12-12 04:55 | XMS REPORT | Continuity of Care Document ---
Author Name Unknown Address [address] [facility] [address] [place] [address] [facility] Address [address] [facility] 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 Name Role Phone Geremias Orr APN Attending Clinician [phone] Problems Condition Name Condition Details Condition Category Status Onset Date Resolution Date Last Treatment Date Treating Clinician Comments Source No known active problems No known active problems Disease [facility] Allergies, Adverse Reactions, Alerts Allergy Name Allergy Type Status Severity Reaction(s) Onset Date Inactive Date Treating Clinician Comments Source NO KNOWN ALLERGIE S Drug Class Active [facility] Social History Social Habit Start Date Stop Date Quantity Comments Source Sex Assigned At [facility] Exposure to SARS-CoV-2 (event) Not sure [facility] Smoking Status Start Date Stop Date Source Unknown if ever smoked [facility] Medications Ordered Medication Name Filled Medication Name Start Date Stop Date Current Medication? Ordering Clinician Indication Dosage Frequency Signature (SIG) Comments Components Source No known medications No Un diya [facility] Vital Signs Vital Name Observation Time Observation Value Comments S ource Body temperature 2020-01-06 17:22:00 38 Elizabeth [facility] Respiratory rate 2020-01-06 17:22:00 20 /min [facility] Body height 2020-01-06 17:22:00 175.3 cm [facility] Body weight 2020-01-06 17:22:00 97.07 kg [facility] BMI 2020-01-06 17:22:00 31.60 kg/m2 [facility] Oxygen saturation in Arterial blood by Pulse oximetry 2020-01-06 17:22:00 97 /min [facility] Systolic blood pressure 2020-01-06 17:22:00 144 mm[Hg] [facility] Diastolic blood pressure 2020-01-06 17:22:00 109 mm[Hg] [facility] Heart rate 2020-01-06 17:22:00 101 /min Unive [facility] Body temperature 2020-01-06 17:22:00 38 Eilzabeth [facility] Respiratory rate 2020-01-06 17:22:00 20 /min [facility] Body height 2020-01-06 17:22:00 175.3 cm [facility] Body weight 2020-01-06 17:22:00 97.07 kg [facility] BMI 2020-01-06 17:22:00 31.60 kg/m2 [facility] Oxygen saturation in Arterial blood by Pulse oximetry 2020-01-06 17:22:00 97 /min [facility] Systolic blood pressure 2020-01-06 17:22:00 144 mm[Hg] [facility] Diastolic blood pressure 2020-01-06 17:22:00 109 mm[Hg] [facility] Heart rate 2020-01-06 17:22:00 101 /min [facility] Procedures Procedure Date / Time Performed Performing Clinicia n Source NOTICE OF PRIVACY PRACTICES 2020-01-06 17:11:57 Doctor Unassigned, [place] [facility] Encounters Start Date/Time End Date/Time Encounter Type Admission Type Attending [facility] Care Facility Care Department Encounter ID Source 2020-02-17 00:00:00 2020-02-17 00:00:00 Outpatient [facility] [id number] [facility] 2020-01-06 12:24:39 2020-01-06 14:00:00 Emergency [facility] [id number] [facility] 2020-01-06 12:24:39 2020-01-06 14:00:00 Emergency Dominga [facility] [id number] 2020-01-06 12:13:00 2020-01-06 12:13:00 Emergency X [facility] ERT [id number] [facility]
[2023-12-12 05:16] LABS: Absolute Basophils 0.1 K/uL (0-0.5); Absolute Eosinophils 0.1 K/uL (0-0.5); Absolute Lymphocytes (CBC) 3.5 K/uL (0.7-4.9); Absolute Monocytes 0.5 K/uL (0.1-1.3); Absolute Neutrophil 4.8 K/uL (1.8-8.0); Basophils % 0.8 % (0-1.3); Eosinophils % 1.1 % (0-4.4); Hematocrit 44.4 % (39.6-49.0); Hemoglobin 13.9 g/dL (13.6-17.9); Lymphocytes % 39.1 % (15.3-44.8); MCH 20.2 pg (27.0-35.0); MCHC 31.3 g/dL (32.0-36.0); MCV 64.4 fL (80-100); MPV 10.8 fL (7.6-11.3); Monocytes % 5.7 % (3.3-12.3); Neutrophils % 53.3 % (41.7-73.7); Nucleated Red Blood Cells % 0.2 % (0-0); Platelets 168 thou/uL (152-406)
[2023-12-12 05:32] LABS: Anion Gap 7.7 mEq/L (5.0-15.0); Potassium 3.7 mEq/L (3.5-5.1); Troponin High Sensitivity 47.3 pg/mL (<58.9)
[2023-12-12 05:35] LABS: Barbiturates NEGATIVE (NEGATIVE); Benzodiazepines NEGATIVE (NEGATIVE); Cocaine NEGATIVE (NEGATIVE); METHAMPHETAM NEGATIVE (NEGATIVE); Methadone NEGATIVE (NEGATIVE); Opiates NEGATIVE (NEGATIVE); Phencyclidine NEGATIVE (NEGATIVE); THC Cannibis NEGATIVE (NEGATIVE)
[2023-12-12] MEDS ORDERED: THIAMINE 200 MG/2 ML INJ ONE (05:46)
[2023-12-12] MEDS ORDERED: NA CHLORIDE 0.9% 1,000 ML ONE (05:47)
--- NOTE | 2023-12-12 06:30 | EDPHYS ---
Physician Documentation [facility] Name: Tyler Silverio Jr Age: 37 yrs Sex: Male : 1985 Arrival Date: 12/12/2023 Time: 04:51 Bed 4 Private MD: ED Physician Fred Nguyen HPI: 12/11 05:34 This 37 yrs old Male presents to ER via EMS with complaints of Palpitations. sp4 05:37 37-year-old [place] with EMS and police sp4 complaining of intoxication and palpitations. Patient states he had several beers.. 05:38 Patient states he takes Seroquel 300 mg daily and Wellbutrin 150 mg daily. Apparently sp4 history of schizophrenia, intermittent explosive disorder, and depression.. Historical: - Allergies: 04:58 No Known Allergies; km8 - Home Meds: 04:58 Seroquel Oral [Active]; Wellbutrin Oral [Active]; km8 - PMHx: 04:58 Bipolar disorder; INTERMITTENT EXPLOSIVE DISORDER; Schizophrenia; Depressive disorder; km8 - PSHx: 04:58 None; km8 - Immunization history:: Adult Immunizations unknown. - Infectious Disease History:: Denies. - Social history:: Smoking status: Patient reports the use of cigarette tobacco products, denies chronic smoking, but will smoke occasionally, Patient uses alcohol, on a daily basis. Patient/guardian denies using street drugs. - Family history:: not pertinent. ROS: 05:38 Constitutional: Negative for fever, chills, and weight loss, positive for intoxication sp4 and palpitations. 05:38 All other systems are negative, Exam: 05:38 Constitutional: This is a well developed, well nourished patient who is awake, alert, sp4 and in no acute distress. Extensive tattoos, moderate intoxication Head/Face: Normocephalic, atraumatic. Eyes: Pupils equal round and reactive to light, extra-ocular motions intact. Lids and lashes normal. Conjunctiva and sclera are not injected. Cornea within normal limits. Periorbital areas with no swelling, redness, or edema. ENT: Nares patent. No nasal discharge, no septal abnormalities noted. Tympanic membranes are normal and external auditory canals are clear. Oropharynx with no redness, swelling, or masses, exudates, or evidence of obstruction, uvula midline. Mucous membranes moist. Neck: Trachea midline, no thyromegaly or masses palpated, and no cervical lymphadenopathy. Supple, full range of motion without nuchal rigidity, or vertebral point tenderness. Chest/axilla: Normal chest wall appearance and motion. Nontender with no deformity. No lesions are appreciated. Cardiovascular: Regular rate and rhythm with a normal S1 and S2. No gallops, murmurs, or rubs. Normal PMI, no JVD. No pulse deficits. Respiratory: Lungs have equal breath sounds bilaterally, clear to auscultation and percussion. No rales, rhonchi or wheezes noted. No increased work of breathing, no retractions or nasal flaring. Abdomen/GI: Soft, with normal bowel sounds. No distension or tympany. No guarding or rebound. No evidence of tenderness throughout. Back: No spinal tenderness. No costovertebral tenderness. Skin: Warm, dry with normal turgor. Normal color with no rashes, no lesions, and no evidence of cellulitis. MS/ Extremity: Pulses equal, no cyanosis. Neurovascular intact. Full, normal range of motion. Neuro: Awake and alert, GCS 15, oriented to person, place, time, and situation. Cranial nerves II-XII grossly intact. Motor strength 5/5 in all extremities. Sensory grossly intact. Psych: Awake, alert, with orientation to person, place and time. Behavior, mood, and affect are within normal limits 05:40 ECG was reviewed by the Attending Physician. EKG at 0 449 normal sinus rhythm at the sp4 age of 81, LVH but otherwise normal Vital Signs: 04:54 BP 147 / 111; Pulse 81; Resp 21; Temp 97.1(TE); Pulse Ox 100% on R/A; Weight 94.8 kg km8 (R); Height 5 ft. 10 in. (R); Pain 0/10; 05:00 BP 146 / 100; Pulse 81; Resp 20; Pulse Ox 98% on R/A; km8 06:00 BP 129 / 99; Pulse 75; Resp 14; Pulse Ox 99% on R/A; km8 06:40 BP 121 / 85; Pulse 72; Resp 16; Temp 97.5(TE); Pulse Ox 97% on R/A; Pain 0/10; tm6 04:54 Body Mass Index 29.99 (94.80 kg, 177.8 cm) km8 04:54 Pain Scale: Adult km8 06:40 Pain Scale: Adult tm6 Munday Coma Score: 04:58 Eye Response: spontaneous(4). Motor Response: obeys commands(6). Verbal Response: km8 oriented(5). Total: 15. 05:38 Eye Response: spontaneous(4). Motor Response: obeys commands(6). Verbal Response: sp4 oriented(5). Total: 15. MDM: 05:00 Patient medically screened. 4 06:31 Differential diagnosis: arrythmia, dehydration, stress disorder. Data reviewed: vital sp4 signs, nurses notes, EMS record, old medical records, lab test result(s), EKG, radiologic studies, plain films. ED course: EXAM: XR Chest 1 ViewAP HISTORY: Palpitation COMPARISON: None TECHNIQUE: Chest 1 ViewAP FINDINGS: Mild decreased inspiration (decreased lung volumes). Trachea midline. Heart size and pulmonary vessels within normal limits. Lungs clear without evidence of consolidation, mass, or significant pulmonary edema. No significant pleural effusion or pneumothorax. Bones unremarkable. IMPRESSION: Normal chest radiograph. ED course: Basically patient is acutely intoxicated without any other significant findings. Patient stable for discharge home.. 12/11 05:03 Order name: Basic Metabolic Panel; Complete Time: 05:34 sp4 12/11 05:03 Order name: CBC with Diff; Complete Time: 05:34 4 12/11 05:03 Order name: Troponin HS; Complete Time: 05:34 4 12/11 05:03 Order name: UDS; Complete Time: 05:38 sp4 12/11 05:34 Order name: Alcohol Level; Complete Time: 06:17 4 12/11 05:03 Order name: XRAY Chest (1 view) 4 12/11 05:03 Order name: EKG; Complete Time: 05:03 4 12/11 05:03 Order name: Cardiac monitoring; Complete Time: 05:04 4 12/11 05:03 Order name: EKG - Nurse/Tech; Complete Time: 05:04 [facility] 12/11 05:03 Order name: IV Saline Lock; Complete Time: 05:04 4 12/11 05:03 Order name: Labs collected and sent; Complete Time: 05:04 sp4 12/11 05:03 Order name: O2 Per Protocol; Complete Time: 05: sp4 12/11 05:03 Order name: O2 Sat Monitoring; Complete Time: 05: sp4 EC:40 Rate is 81 beats/min. Rhythm is regular, Normal Sinus Rhythm. QRS [place] is Normal. [place] sp4 interval is normal. QRS interval is normal. QT interval is normal. No Q waves. T waves are Normal. No ST changes noted. Clinical impression: No evidence of ischemia. Interpreted by me. Reviewed by me. Administered Medications: 05:51 Drug: Thiamine IV 100 mg IV at bolus once Route: IV; Rate: bolus; Site: right tm6 antecubital; 05:51 Drug: NS 0.9% IV 1000 ml IV at 1 bolus Per protocol; 1000 mL bolus Route: IV; Rate: 1 tm6 bolus; Site: right antecubital; 06:42 Follow up: IV Status: Completed infusion; IV Intake: 1000ml tm6 Disposition Summary: 12/12/23 06:30 Discharge Ordered Notes: Location: Home sp4 Problem: new sp4 Symptoms: have improved sp4 Condition: Stable sp4 Diagnosis - Alcohol abuse with intoxication sp4 Followup: sp4 - With: Private Physician - When: 7 - 10 days - Reason: Recheck today's complaints Discharge Instructions: - Discharge Summary Sheet sp4 - Alcohol Intoxication sp4 Forms: - Patient Portal Instructions sp4 Signatures: Dispatcher [employer] Fred Ward MD MD sp4 Nilda Nguyen RN RN km8 Yenny Quevedo RN RN tm6
--- NOTE | 2023-12-12 06:30 | ER ---
Nurse's Notes [facility] Name: Tyler Silverio Jr Age: 37 yrs Sex: Male : 1985 Arrival Date: 12/12/2023 Time: 04:51 Bed 4 Private MD: Diagnosis: Alcohol abuse with intoxication Presentation: 12/11 04:54 Chief complaint: EMS states: toned out for pt in unconscious at a bus stop in [place]; km8 pt was waking up with EMS arrived on scene and is now A\T\Ox4; pt had pinpoint pupils that were sluggish; pt reported feeling heart palpitation prior to laying down at the bus stop; pt denies CP or SOB a this time; pt does report drinking last night. Coronavirus screen: Client denies travel out of the [place] in the last 14 days. Ebola Screen: No symptoms or risks identified at this time. Initial Sepsis Screen: Does the patient meet any 2 criteria? No. Patient's initial sepsis screen is negative. Does the patient have a suspected source of infection? No. Patient's initial sepsis screen is negative. Risk Assessment: Do you want to hurt yourself or someone else? Patient reports no desire to harm self or others. Onset of symptoms was December 12, 2023. 04:54 Method Of Arrival: EMS: [place] [facility] km8 04:54 Acuity: MARTHA 2 km8 Triage Assessment: 04:54 General: Appears in no apparent distress. comfortable, Behavior is calm, cooperative, km8 appropriate for age, Smells of alcohol. Pain: Denies pain. EENT: No signs and/or symptoms were reported regarding the EENT system. Neuro: Level of Consciousness is awake, alert, obeys commands, Oriented to person, place, time, situation, Pupils are PERRLA. Cardiovascular: Denies chest pain, shortness of breath, Patient's skin is warm and dry. Respiratory: Airway is patent Respiratory effort is even, unlabored, Respiratory pattern is regular, symmetrical. GI: No signs and/or symptoms were reported involving the gastrointestinal system. : No signs and/or symptoms were reported regarding the genitourinary system. Derm: No signs and/or symptoms reported regarding the dermatologic system. Skin is intact, is healthy with good turgor, Skin is dry, Skin is pink, warm \T\ dry. normal, Skin temperature is warm. Musculoskeletal: No signs and/or symptoms reported regarding the musculoskeletal system. Range of motion: intact in all extremities. Historical: - Allergies: 04:58 No Known Allergies; km8 - Home Meds: 04:58 Seroquel Oral [Active]; Wellbutrin Oral [Active]; km8 - PMHx: 04:58 Bipolar disorder; INTERMITTENT EXPLOSIVE DISORDER; Schizophrenia; Depressive disorder; km8 - PSHx: 04:58 None; km8 - Immunization history:: Adult Immunizations unknown. - Infectious Disease History:: Denies. - Social history:: Smoking status: Patient reports the use of cigarette tobacco products, denies chronic smoking, but will smoke occasionally, Patient uses alcohol, on a daily basis. Patient/guardian denies using street drugs. - Family history:: not pertinent. Screenin:55 [facility] ED Fall Risk Assessment (Adult) History of falling in the last 3 months, tm6 including since admission No falls in past 3 months (0 pts) Confusion or Disorientation No (0 pts) Intoxicated or Sedated Yes (3 pts) Impaired Gait Yes (1 pt) Mobility Assist Device Used No (0 pt) Altered Elimination No (0 pt) Score/Fall Risk Level 3 or more points = High Risk Oriented to surroundings, Maintained a safe environment, Educated pt \T\ family on fall prevention, incl call for assistance when getting out of bed. Abuse screen: Denies threats or abuse. Denies injuries from another. Nutritional screening: No deficits noted. Tuberculosis screening: No symptoms or risk factors identified. Assessment: 04:58 Reassessment: see triage assessment/note. [facility] 05:51 Reassessment: Patient appears in no apparent distress at this time. No changes from 8 previously documented assessment. Patient and/or family updated on plan of care and expected duration. Pain level reassessed. Patient is alert, oriented x 3, equal unlabored respirations, skin warm/dry/pink. 06:41 Reassessment: No changes from previously documented assessment. tm6 Vital Signs: 04:54 BP 147 / 111; Pulse 81; Resp 21; Temp 97.1(TE); Pulse Ox 100% on R/A; Weight 94.8 kg km8 (R); Height 5 ft. 10 in. (R); Pain 0/10; 05:00 BP 146 / 100; Pulse 81; Resp 20; Pulse Ox 98% on R/A; km8 06:00 BP 129 / 99; Pulse 75; Resp 14; Pulse Ox 99% on R/A; km8 06:40 BP 121 / 85; Pulse 72; Resp 16; Temp 97.5(TE); Pulse Ox 97% on R/A; Pain 0/10; tm6 04:54 Body Mass Index 29.99 (94.80 kg, 177.8 cm) km8 04:54 Pain Scale: Adult km8 06:40 Pain Scale: Adult tm6 [place] Coma Score: 04:58 Eye Response: spontaneous(4). Motor Response: obeys commands(6). Verbal Response: km8 oriented(5). Total: 15. 05:38 Eye Response: spontaneous(4). Motor Response: obeys commands(6). Verbal Response: sp4 oriented(5). Total: 15. ED Course: 04:54 Patient arrived in ED. km8 04:54 EKG done, by ED staff. Inserted saline lock: 20 gauge in right antecubital area, using tm6 aseptic technique. 04:54 Arm band placed on right wrist. km8 04:55 Patient has correct armband on for positive identification. Placed in gown. Bed in low tm6 position. Call light in reach. Side rails up X 1. Provided Education on: use of call wilkins. Client placed on continuous cardiac and pulse oximetry monitoring. NIBP monitoring applied. monitoring manager on. Pulse ox on. NIBP on. Door closed. Noise minimized. Warm blanket given. Pillow given. 04:57 Triage completed. km8 04:59 Nilda Nguyen, MARCELO is Primary Nurse. km8 05:00 Fred Nguyen MD is Attending Physician. sp4 05:08 Basic Metabolic Panel Sent. tm6 05:08 CBC with Diff Sent. tm6 05:08 Troponin HS Sent. tm6 05:08 UDS Sent. tm6 05:18 XRAY Chest (1 view) In Process Unspecified. EDMS 05:51 No provider procedures requiring assistance completed. km8 06:42 IV discontinued, intact, bleeding controlled, No redness/swelling at site. Pressure tm6 dressing applied. Administered Medications: 05:51 Drug: Thiamine IV 100 mg IV at bolus once Route: IV; Rate: bolus; Site: right tm6 antecubital; 05:51 Drug: NS 0.9% IV 1000 ml IV at 1 bolus Per protocol; 1000 mL bolus Route: IV; Rate: 1 tm6 bolus; Site: right antecubital; 06:42 Follow up: IV Status: Completed infusion; IV Intake: 1000ml tm6 Medication: 04:56 VIS not applicable for this client. tm6 Intake: 06:42 IV: 1000ml; Total: 1000ml. tm6 Outcome: 06:30 Discharge ordered by . [email or web address] 06:41 Discharged to home ambulatory, tm6 06:41 Condition: stable 06:41 Discharge instructions given to patient, Instructed on discharge instructions, follow up and referral plans. Demonstrated understanding of instructions, follow-up care, 06:42 Patient left the ED. tm6 Signatures: Dispatcher [employer] EDMS Fred Nguyen MD MD sp4 Nilda Nguyen RN RN km8 Yenny Quevedo RN RN tm6 Corrections: (The following items were deleted from the chart) 05:53 04:54 EENT: No signs and/or symptoms were reported regarding the EENT system. km8 km8 05:53 04:54 Neuro: Level of Consciousness is awake, alert, obeys commands, Oriented to km8 person, place, time, situation, km8
[2023-12-12 06:49] VITALS: TEMP 97.1
[2023-12-12 07:06] VITALS: BP 129/99; O2SAT 99
--- NOTE | 2023-12-12 15:17 | RAD REPORT ---
EXAM DESCRIPTION: RAD - Chest Single View - 12/12/2023 5:17 am CLINICAL HISTORY: Palpitation COMPARISON: None TECHNIQUE: Chest 1 View AP FINDINGS: Mild decreased inspiration (decreased lung volumes). Trachea midline. Heart size and pulmonary vessels within normal limits. Lungs clear without evidence of consolidation, mass, or significant pulmonary edema. No significant pleural effusion or pneumothorax. Bones unremarkable. IMPRESSION: Normal chest radiograph. Electronically signed by: Franklin Chowdhury MD 12/12/2023 06:20 AM CDT Due to temporary technical issues with the PACS/Fluency reporting system, reports are being signed by the in house radiologists without review as a courtesy to insure prompt reporting. The interpreting radiologist is fully responsible for the content of the report.
--- NOTE | 2023-12-12 16:48 | EKG ---
Test Date: 2023-12-12 Test Time: 04:49:54 Teller Supervisor: ION MEASUREMENT RESULTS: Intervals: Rate: 81 FL: 154 QRSD: 88 QT: 364 QTc: 422 [place]: P: 45 FL: 154 QRS: -13 T: 4 INTERPRETIVE STATEMENTS: Normal sinus rhythm Minimal voltage criteria for LVH, may be normal variant Possible Anterior infarct, age undetermined Abnormal ECG Compared to ECG 11/27/2023 02:32:18 Left ventricular hypertrophy now present Myocardial infarct finding now present Electronically Signed On 12-12-23 16:47:16 CDT by Xavier Deleon
== END 2023-12-12 06:42 | disposition home or self-care (01) ==
LOC: ER 04:51
DX: F10.129 Alcohol abuse with intoxication, unspecified (principal); F20.9 Schizophrenia, unspecified; F17.210 Nicotine dependence, cigarettes, uncomplicated
CPT/HCPCS: 96361; 93005; 85025; 80048; 36415; 84484; 80307; 71045; 96374; 99285; 82077; J3411; J7030